=== PATIENT | male | born 1965 | race African-American/Black ===

== ENCOUNTER 2017-07-11 02:16 | Emergency (ER) | payer MEDICARE, MEDICAID ==
[~2017-07-11] VITALS: Ht 167.6 cm; Wt 72.6 kg
[~2017-07-11 02:16] MED LIST: AMLO10TA2 PO; ARIP20TA8 PO; BENA10TA2 PO; CLON1TAB23 PO; LORA2ORA PO; TEMA15CA PO
[2017-07-11 02:20] VITALS: BP 142/89
[2017-07-11 02:45] LABS: BASOPHILS % (AUTO) 0.2 % (0.0-2.0); EOSINOPHILS # (AUTO) 0.1 /CMM (0.0-0.7); EOSINOPHILS % (AUTO) 0.9 % (0.0-6.0); HEMATOCRIT 45 % (39-51); HEMOGLOBIN 14.9 g/dL (13.5-17.5); LYMPHOCYTES # (AUTO) 2.7 /CMM (0.8-4.8); MEAN CORPUSCULAR HEMOGLOBIN 28 PG (26.0-33.0); MEAN CORPUSCULAR HGB CONC 33 g/dl (31.0-36.0); MEAN CORPUSCULAR VOLUME 86 fL (80-96); MONOCYTES # (AUTO) 0.5 /CMM (0.1-1.30); MONOCYTES % (AUTO) 7.9 % (2.0-12.0); NEUTROPHILS # (AUTO) 3.2 /CMM (1.8-8.9); PLATELET COUNT (AUTO) 164 /CMM (150-450); RDW COEFFICIENT OF VARIATION 13.4 (11.5-15.0); RED BLOOD CELL COUNT(AUTO) 5.25 MIL/uL (4.5-6.0); WHITE BLOOD COUNT (AUTO) 6.5 K/uL (4.3-11.0)
[2017-07-11 03:00] LABS: CALCIUM, SERUM 8.8 mg/dL (8.5-10.1); POTASSIUM 3.9 mmol/L (3.5-5.1)
[2017-07-11 03:04] LABS: BILIRUBIN,DIRECT 0.1 mg/dL (0.0-0.2); BILIRUBIN,TOTAL 0.4 mg/dL (0.2-1.0); TOTAL PROTEIN, SERUM 7.8 g/dL (6.4-8.2)
[2017-07-11 03:06] LABS: SALICYLATE 1.6 mg/dL (2.8-20.0)
[2017-07-11 03:11] LABS: THYROID STIMULATING HORMONE 2.715 uIU/mL (0.358-3.74)
== END 2017-07-11 03:27 | disposition home or self-care (01) ==
LOC: ER 02:16
DX: F32.9 Major depressive disorder, single episode, unspecified (principal); I10 Essential (primary) hypertension; F43.10 Post-traumatic stress disorder, unspecified; F20.9 Schizophrenia, unspecified; F14.10 Cocaine abuse, uncomplicated
CPT/HCPCS: 36415; 80048; 80076; 80305; 80329; 84443; 85025; 99284; A4606; G0480 ×2; Z7610